=== PATIENT | male | born 1990 | race Caucasian/White ===

== ENCOUNTER 2019-07-07 12:52 | Emergency (ER) | payer SELFPAY ==
[2019-07-07] VITALS (8 sets, daily range): BP systolic 130–161; BP diastolic 78–111; PULSE 72–95; RESP 13–21; TEMP 36.7; O2SAT 94–100; BMI 24.4
--- NOTE | 2019-07-07 13:02 | DI.RAD.S_ITS ---
PROCEDURE: XR KUB INDICATIONS: swallowed 2-3 bags of heroin TECHNIQUE: One view of the abdomen acquired. COMPARISON: None. FINDINGS: Surgical changes and devices: None. Bowel: Bowel gas pattern is normal. Significant stool is present. No obstruction. Soft tissues: No suspicious abdominal calcifications. Visualized solid organ contours appear normal in size. Bones: No suspicious bony lesions. IMPRESSION: No definitive radiopaque foreign bodies are identified. Circular metallic structures overlying the pelvis are likely related to patient's clothing and recommend correlation. If further concern for ingested substances persists, CT is recommended. Dictated by: Karli Perales M.D. on 07/07/2019 at 13:26 Approved by: Karli Perales M.D. on 07/07/2019 at 13:27
--- NOTE | 2019-07-07 13:10 | ED_ITS ---
HPI - Overdose General Chief Complaint: Toxicology Problem Stated Complaint: Fit for senior care, injested drugs Time Seen by Provider: 07/07/19 12:55 Source: patient and police Mode of arrival: Ambulatory Limitations: no limitations History of Present Illness HPI Narrative: Patient is a 29-year-old male brought in by police after he admits to swelling 2-3 bags of heroin 2-3 hours prior to arrival. He was arrested and brought to senior care at which point he told police that he swallowed bags of heroin. He says he doesn't think it was sealed because he could take a state as he swallowed it. He is not sure how much was in each bag either half a gram to a gram. He currently denies any symptoms. He injects heroin on a f airly regular basis and uses methamphetamine as well. He denies swallowing methamphetamine and states it was only heroin. Patient has been in police custody since 8:04 a.m. complaint: intentional overdose Onset (ago): hour(s) Intent: other (Arrested) Treatments Prior to Arrival: none Related Data Previous Rx's Medication Instructions Recorded sulfamethoxazole-trimethoprim 1 tab PO BID 7 Days #14 tab 07/07/19 [Bactrim DS] Allergies Allergy/AdvReac Type Severity Reaction Status Date / Time No Known Drug Allergies Allergy Verified 07/07/19 13:03 Review of Systems Review of Systems Narrative: GENERAL: Denies chills, fatigue, malaise, fever, sweats, travel HEENT: Denies sinus pain, ear pain, sore throat, difficulty swallowing, neck pain RESPIRATORY: Denies dyspnea, cough, wheezing, hemoptysis, sputum. CARDIOVASCULAR: Denies chest pain, palpitations, orthopnea, edema GASTROINTESTINAL: Denies nausea, vomiting, abdominal pain, diarrhea, constipation, melena. : Denies dysuria, frequency, incontinence, hematuria, urinary retention, flank pain. MUSCULOSKELETAL: Denies weakness, joint pain, or bony pain SKIN: No rash, no erythema, no pruritus NEUROLOGIC: Denies weakness, dizziness, headache, numbness, change in speech, confusion PSYCHIATRIC: No concerning psychosocial issues. 12 point review of systems is negative except for those stated above and HPI Patient History Medical History Patient denies medical problems (Acute) Social History Smoking Status: Current every day smoker Smoking Status: Current every day smoker Substance Use Type: heroin, IV drugs and methamphetamine Exam Initial Vital Signs Initial Vital Signs: Vital Signs Temperature 98.0 F 07/07/19 13:04 Pulse Rate 86 07/07/19 13:04 Respiratory Rate 21 07/07/19 13:04 Blood Pressure 161/111 H 07/07/19 13:04 Pulse Oximetry 100 07/07/19 13:04 GENERAL: Well-appearing, well-nourished and in no acute distress. HEENT: Head atraumatic,EOMI, pupils reactive, face symmetric, moist mucous membranes CARDIOVASCULAR: Regular rate and rhythm without murmurs, rubs or gallops. RESPIRATORY: Breath sounds equal bilaterally, no wheezes rales or rhonchi. ABDOMEN: Soft, nontender. Normoactive bowel sounds all 4 quadrants. No guarding or rebound. EXTREMITIES: Normal range of motion, no clubbing or edema. Neurovascularly intact NEUROLOGICAL: Alert and oriented x4.Normal gait and speech. Cranial nerves II through XII grossly intact. SKIN: Multiple track mackenzie mild swelling over right and left bicep no erythema no fluctuation no gross pus Course Orders Ordered: ED Orders 07/07/19 13:02 XR KUB Stat 07/07/19 14:25 Acetaminophen Stat Complete Blood Count AUTO DIFF Stat Comprehensive Metabolic Panel Stat Ethanol (ETOH) Stat Hepatic (Liver) Panel Stat Lactate (Lactic Acid) Stat Salicylate Stat 07/07/19 16:00 Urine Drug Screen, Rapid Stat Discontinued Medications Sodium Chloride (Normal Saline 0.9%) 1,000 mls @ 150 mls/hr IV CONT EDWARD Last Admin: 07/07/19 14:30 Dose: 150 mls/hr Documented by: ANKIT Vital Signs Vital signs: Vital Signs - 8 hr 07/07/19 13:04 07/07/19 13:39 07/07/19 14:30 Temperature 98.0 F Pulse Rate 86 88 79 Respiratory Rate 21 18 14 Blood Pressure 161/111 H Blood Pressure [Right Wrist] 148/85 H 141/94 H Pulse Oximetry 100 100 94 07/07/19 15:00 07/07/19 15:30 07/07/19 16:00 Temperature Pulse Rate 78 95 H 72 Respiratory Rate 16 14 13 Blood Pressure Blood Pressure [Right Wrist] 144/86 H 144/86 H 142/90 H Pulse Oximetry 99 97 100 07/07/19 16:30 07/07/19 16:51 Temperature Pulse Rate 79 80 Respiratory Rate 14 18 Blood Pressure 130/78 Blood Pressure [Right Wrist] 133/80 Pulse Oximetry 100 100 MDM - Overdose Lab Data Attestation: I reviewed the patient's lab results. Result diagrams: 07/07/19 14:25 07/07/19 14:25 Labs: Lab Results 07/07/19 07/07/19 07/07/19 Range/Units 14:25 14:25 14:25 WBC 7.1 (4.5-11.0) X10^3/uL RBC 4.63 (4.5-5.9) X10^6/uL Hgb 13.3 L (13.5-17.5) g/dL Hct 39.1 L (41-53) % MCV 84.4 (80-100) fL MCH 28.7 (26-34) PG MCHC 33.9 (30-36) % RDW 14.0 (11.6-14.8) % Plt Count 197 (150-400) X10^3/uL Neut % (Auto) 80.0 H (50-75) % Lymph % (Auto) 12.5 L (25-40) % [place] % (Auto) 6.2 (3-14) % Eos % (Auto) 0.5 L (2-4) % Baso % (Auto) 0.8 (0-2) % Neut # (Auto) 5700 (1325-0359) /uL Lymph # (Auto) 900 L (2591-8213) /uL [place] # (Auto) 400 (0-900) /uL Eos # (Auto) 0 (0-450) /uL Baso # (Auto) 100 (0-100) /uL Sodium 137 (137-145) mmol/L Potassium 4.0 (3.4-5.1) mmol/L Chloride 100 (98-107) mmol/L Carbon Dioxide 29 (22-32) mmol/L BUN 13 (9-20) mg/dL Creatinine 0.50 L (0.66-1.25) mg/dL Estimated GFR > 60.0 (>60) mL/min BUN/Creatinine Ratio 26.0 H (6-22) Glucose 100 (70-100) mg/dL Lactate 0.5 L (0.7-2.1) mmol/L Calcium 9.2 (8.4-10.2) mg/dL Total Bilirubin 0.6 (0.2-1.3) mg/dL Conjugated Bilirubin 0.0 (0.0-0.3) md/dL Unconjugated Bilirubin 0.4 (0.0-1.1) mg/dL AST 40 (17-59) IU/L ALT 34 (<50) IU/L Alkaline Phosphatase 128 H (38-126) U/L Total Protein 8.8 H (6.3-8.2) g/dL Albumin 4.4 (3.5-5.0) g/dL Globulin 4.4 H (1.7-4.1) g/dL Albumin/Globulin Ratio 1.0 (1.0-2.8) Salicylates < 1.0 (<20) mg/dL U Morph 300 ng/mL cutoff (Negative) Ur Oxycodone Screen (Negative) Urine Methadone Screen (Negative) Acetaminophen < 10 L (10-30) ug/mL Ur Barbiturates Screen (Negative) U Tricyclic Antidepress (Negative) Ur Phencyclidine Scrn (Negative) Ur Amphetamines Screen (Negative) U Methamphetamines Scrn (Negative) Ur MDMA Scrn (Ecstasy) (Negative) U Benzodiazepines Scrn (Negative) Urine Cocaine Screen (Negative) U Marijuana (THC) Screen (Negative) Ethyl Alcohol < 10 ( - 10) mg/dL 07/07/19 Range/Units 16:00 WBC (4.5-11.0) X10^3/uL RBC (4.5-5.9) X10^6/uL Hgb (13.5-17.5) g/dL Hct (41-53) % MCV (80-100) fL MCH (26-34) PG MCHC (30-36) % RDW (11.6-14.8) % Plt Count (150-400) X10^3/uL Neut % (Auto) (50-75) % Lymph % (Auto) (25-40) % [place] % (Auto) (3-14) % Eos % (Auto) (2-4) % Baso % (Auto) (0-2) % Neut # (Auto) (9805-1747) /uL Lymph # (Auto) (1743-2935) /uL [place] # (Auto) (0-900) /uL Eos # (Auto) (0-450) /uL Baso # (Auto) (0-100) /uL Sodium (137-145) mmol/L Potassium (3.4-5.1) mmol/L Chloride (98-107) mmol/L Carbon Dioxide (22-32) mmol/L BUN (9-20) mg/dL Creatinine (0.66-1.25) mg/dL Estimated GFR (>60) mL/min BUN/Creatinine Ratio (6-22) Glucose (70-100) mg/dL Lactate (0.7-2.1) mmol/L Calcium (8.4-10.2) mg/dL Total Bilirubin (0.2-1.3) mg/dL Conjugated Bilirubin (0.0-0.3) md/dL Unconjugated Bilirubin (0.0-1.1) mg/dL AST (17-59) IU/L ALT (<50) IU/L Alkaline Phosphatase (38-126) U/L Total Protein (6.3-8.2) g/dL Albumin (3.5-5.0) g/dL Globulin (1.7-4.1) g/dL Albumin/Globulin Ratio (1.0-2.8) Salicylates (<20) mg/dL U Morph 300 ng/mL cutoff Positive H (Negative) Ur Oxycodone Screen Negative (Negative) Urine Methadone Screen Positive H (Negative) Acetaminophen (10-30) ug/mL Ur Barbiturates Screen Negative (Negative) U Tricyclic Antidepress Negative (Negative) Ur Phencyclidine Scrn Negative (Negative) Ur Amphetamines Screen Positive H (Negative) U Methamphetamines Scrn Positive H (Negative) Ur MDMA Scrn (Ecstasy) Negative (Negative) U Benzodiazepines Scrn Negative (Negative) Urine Cocaine Screen Negative (Negative) U Marijuana (THC) Screen Negative (Negative) Ethyl Alcohol ( - 10) mg/dL Imaging Data Abdominal x-ray: Radiologist's Impression: PROCEDURE: XR KUB INDICATIONS: swallowed 2-3 bags of heroin TECHNIQUE: One view of the abdomen acquired. COMPARISON: None. FINDINGS: Surgical changes and devices: None. Bowel: Bowel gas pattern is normal. Significant stool is present. No obstruction. Soft tissues: No suspicious abdominal calcifications. Visualized solid organ contours appear normal in size. Bones: No suspicious bony lesions. IMPRESSION: No definitive radiopaque foreign bodies are identified. Circular metallic structures overlying the pelvis are likely related to patient's clothing and recommend correlation. If further concern for ingested substances persists, CT is recommended. Dictated by: Karli Perales M.D. on 07/07/2019 at 13:26 MDM Narrative Medical decision making narrative: Poison control was contacted immediately upon arrival. Recommended watchful waiting and needed at least 6 hours of monitoring post ingestion. Questionable time of post ingestion. He was monitored in the emergency department for 3-4 hours showing no signs or symptoms of intoxication or overdose. He does have some swelling on his right biceps and left biceps area he is concerned that these might be abscesses. They are not erythematous or fluctuant but are slightly tender to touch will put him on antibiotic. The patient remained in police custody the entire time while in the emergency department and was released to police. Discharge Plan Departure Patient Disposition: Released, Other Clinical Impression: Overdose Qualifiers: Encounter type: initial encounter Injury intent: undetermined intent Qualified Code(s): T50.904A - Poisoning by unspecified drugs, medicaments and biological substances, undetermined, initial encounter Discharge Date/Time: 07/07/19 16:53 Instructions: DI for Drug Abuse and Drug Addiction Activity Restrictions/Additional Instructions: Fit for senior care *You have been diagnosed with overdose, abscesses *What to do: Stop using drugs Abscesses are not ready to be drained *Continue to take medications as directed Bactrim 1 tablet twice a day for 7 days *Follow up with your primary care provider in 2-3 days *Return to ER if you should have decreasing mental status, decreasing respirations or any new, worsening or concerning symptoms Prescriptions: New sulfamethoxazole-trimethoprim [Bactrim DS] 800-160 mg tablet 1 tab PO BID 7 Days Qty: 14 RF: 0
[2019-07-07] MEDS: SODIUM CHLORIDE 0.9% 1,000 ML 150 ML IV (14:30)
[2019-07-07 14:34] LABS: Add Manual Diff / Slide Review NO; Basophils Absolute Auto 100 /uL (0-100); Basophils Percent Auto 0.8 % (0-2); Eosinophils Absolute Auto 0 /uL (0-450); Eosinophils Percent Auto 0.5 % (2-4); Hematocrit 39.1 % (41-53); Hemoglobin 13.3 g/dL (13.5-17.5); Lymphocytes Absolute Auto 900 /uL (1100-4500); Lymphocytes Percent Auto 12.5 % (25-40); Mean Corpuscular HGB Conc 33.9 % (30-36); Mean Corpuscular Hemoglobin 28.7 PG (26-34); Mean Corpuscular Volume 84.4 fL (80-100); Monocytes Absolute Auto 400 /uL (0-900); Monocytes Percent Auto 6.2 % (3-14); Neutrophils Absolute Auto 5700 /uL (1500-7000); Platelet Count 197 X10^3/uL (150-400); Red Blood Cell Count 4.63 X10^6/uL (4.5-5.9); White Blood Cell Count 7.1 X10^3/uL (4.5-11.0)
[2019-07-07 14:45] LABS: Lactate (Lactic Acid) 0.5 mmol/L (0.7-2.1)
[2019-07-07 14:48] LABS: Acetaminophen < 10 ug/mL (10-30); Alanine Aminotransferase 34 IU/L (<50); Albumin 4.4 g/dL (3.5-5.0); Alkaline Phosphatase 128 U/L (38-126); Aspartate Aminotransferase 40 IU/L (17-59); Bilirubin Total 0.6 mg/dL (0.2-1.3); Bilirubin Unconjugated 0.4 mg/dL (0.0-1.1); Blood Urea Nitrogen 13 mg/dL (9-20); Calcium 9.2 mg/dL (8.4-10.2); Carbon Dioxide 29 mmol/L (22-32); Chloride 100 mmol/L (98-107); Estimated Glomerular Filt Rate > 60.0 mL/min (>60); Ethanol (ETOH) < 10 mg/dL; Globulin 4.4 g/dL (1.7-4.1); Glucose 100 mg/dL (70-100); HEMOLYSIS 17 (0-50); Salicylate < 1.0 mg/dL (<20); Sodium 137 mmol/L (137-145); Total Protein 8.8 g/dL (6.3-8.2)
[2019-07-07 16:18] LABS: Ur Creatinine Normal (Normal); Ur Specific Gravity Normal (Normal); Urine Cocaine Negative (Negative); Urine Tetrahydrocannabinol Negative (Negative); Urine pH Normal (Normal)
[2019-07-07 16:19] LABS: UR Morphine/Opiate cutoff 300 Positive (Negative); Urine Amphetamines Positive (Negative); Urine Barbiturates Negative (Negative); Urine Benzodiazepines Negative (Negative); Urine MDMA Negative (Negative); Urine Methadone Positive (Negative); Urine Methamphetamines Positive (Negative); Urine Oxycodone Negative (Negative); Urine Phencyclidine Negative (Negative); Urine Tricyclic Antidepressant Negative (Negative)
== END 2019-07-07 16:53 | disposition home or self-care (01) ==
PROVIDERS: Emergency Provider Emergency Medicine
DX: T40.1X1A Poisoning by heroin, accidental (unintentional), initial encounter (principal)
CPT/HCPCS: 74018; 80053; 80076; 80305; 80320; 80329; 83605; 85025; 96360; 96361; 99284; G0480